=== PATIENT | female | born 1965 | race Caucasian/White ===

== ENCOUNTER 2018-06-07 10:52 | Emergency (ER) | payer BC ==
[~2018-06-07] VITALS: Ht 160 cm; Wt 47.3 kg
[~2018-06-07 10:52] MED LIST: LIPITOR20 MG; NORCO 325 MG-51 TAB PO; PROTONIX 40MG T40 MG PO; ZOFRAN 4MG T4 MG/TAB PO; ZOLOFT 100MG100 MG
[2018-06-07 10:56] VITALS: BP 131/82; TEMP 97.5
[2018-06-07 11:29] LABS: BASO % 0.3 % (0.0-2.0); EOS % 0.1 % (0-4.0); GRAN # 7.3 (1.4-6.5); GRAN % 79.7 % (42.2-75.2); HEMATOCRIT 41.9 % (37.0-47.0); HEMOGLOBIN 14.5 g/dl (12.5-16.0); LYMPH # 1.1 (1.2-3.4); LYMPH % 12.1 % (20.0-51.0); MEAN CELL VOLUME 104 fl (80.0-100.0); MEAN CORPUSCULAR HEMOGLOBIN 36 pg (27.0-31.0); MEAN CORPUSCULAR HGB CONC 35 g/dl (33.0-37.0); MEAN PLATELET VOLUME 8.9 fl (7.4-10.4); MONO # 0.7 (0.1-0.6); MONO % 7.4 % (1.7-9.3); PLATELET COUNT 185 K/mm3 (130-400); RED BLOOD COUNT 4.05 M/mm3 (4.10-5.30); REDCELL DISTRIBUTION WIDTH-CV 11.9 % (11.5-14.5)
[2018-06-07 11:43] LABS: ALANINE AMINOTRANSFERASE 28 U/L (9-52); ALBUMIN 4.1 gm/dL (3.5-5.0); ALKALINE PHOSPHATASE 83 U/L (50-136); ANION GAP 6 mmol/L (7-16); AST,SGOT 20 U/L (15-37); BILIRUBIN,TOTAL 0.3 mg/dL (0.0-1.0); BLOOD UREA NITROGEN 13 mg/dL (7-17); CALCIUM 9.5 mg/dL (8.4-10.2); CARBON DIOXIDE 29 mmol/L (22-30); CHLORIDE 101 mmol/L (98-107); CREATINE KINASE 44 U/L (30-135); CREATININE, serum 0.51 mg/dL (0.52-1.25); GLUCOSE 122 mg/dL (74-106); POTASSIUM 3.7 mmol/L (3.4-5.0); SODIUM 136 mmol/L (137-145); TOTAL PROTEIN 7.5 gm/dL (6.4-8.2)
[2018-06-07 12:03] LABS: TROPONIN-I < 0.012 ng/mL (0.000-0.034)
[2018-06-07 12:17] LABS: C-REACTIVE PROTEIN 31.4 mg/dL (0.0-0.9)
[2018-06-07] MEDS ORDERED: LEVAQUIN 5500 MG/TA1 PO (12:56)
[2018-06-07] MEDS ORDERED: PREDNISONE20 MG PO (12:56)
[2018-06-07 13:55] VITALS: PULSE 84
== END 2018-06-07 14:14 | disposition home or self-care (01) ==
LOC: COL.ER 10:52
PROVIDERS: Emergency Medicine
DX: J18.1 Lobar pneumonia, unspecified organism (principal); J44.1 Chronic obstructive pulmonary disease with (acute) exacerbation; F17.210 Nicotine dependence, cigarettes, uncomplicated
CPT/HCPCS: J7030; J7512

== ENCOUNTER → 2023-06-18 | Outpatient (CLI) | payer BC ==
[~2023-06-18] MED LIST changes: +LEVAQUIN 5500 MG/TA1 PO; +PREDNISONE20 MG PO
== END ==
LOC: MHCPAIN 14:54
DX: M47.896 Other spondylosis, lumbar region (principal); M54.16 Radiculopathy, lumbar region
CPT/HCPCS: G0463

== ENCOUNTER → 2023-06-18 | Outpatient (CLI) | payer BC | LOC: COL.RAD 16:14 | DX: M43.16 Spondylolisthesis, lumbar region (principal); M54.16 Radiculopathy, lumbar region ==

== ENCOUNTER → 2023-08-05 | Outpatient (CLI) | payer BC | LOC: MHCPAIN 15:26 | DX: M54.50 Low back pain, unspecified (principal); M48.061 Spinal stenosis, lumbar region without neurogenic claudication; M51.26 Other intervertebral disc displacement, lumbar region | CPT/HCPCS: G0463 ==